=== PATIENT | female | born 1995 | race African-American/Black ===

== ENCOUNTER 2022-02-19 07:17 | Emergency (ER) | payer BC ==
[2022-02-19] MEDS ORDERED: Dexamethasone 10 MG/ML VIAL ONE (07:51)
[2022-02-19 08:01] LABS: Pregnancy Test - Urine (BHCG) Negative (Negative)
[2022-02-19 08:02] LABS: Pregu Control Background? CLEAR/WHITE (CLR/WHITE); Pregu Control Bar Appear? YES (CONTROL BAR); Specific Gravity 1.015 (1.002-1.036)
[2022-02-19] MEDS ORDERED: AMOXicillin 250 MG CAP ONE (08:20)
== END 2022-02-19 08:20 | disposition home or self-care (01) ==
LOC: CSHERS 07:17
DX: J03.90 Acute tonsillitis, unspecified (principal); E11.9 Type 2 diabetes mellitus without complications; Z20.822 Contact with and (suspected) exposure to COVID-19; Z79.84 Long term (current) use of oral hypoglycemic drugs
CPT/HCPCS: 81025; 87430; 99283; J1100; U0003; U0005